=== PATIENT | female | born 1980 | race Two or more races ===

== ENCOUNTER 2022-02-02 22:56 | Day surgery (SDC) | payer OTHER ==
[~2022-02-02] VITALS: Ht 162.6 cm; Wt 67.6 kg
== END 2022-02-03 23:25 | disposition home or self-care (01) ==
LOC: ER 22:56 → EDBD 02-03 00:33 → ER 02-03 00:33 → CIR.AMB 02-03 07:41
PROVIDERS: ATTEND Specialist
DX: O03.4 Incomplete spontaneous abortion without complication (principal); Z20.822 Contact with and (suspected) exposure to COVID-19; J45.909 Unspecified asthma, uncomplicated